=== PATIENT | female | born 1970 | race African-American/Black ===

== ENCOUNTER 2022-10-01 15:35 | Emergency (ER) | payer MEDICAID, OTHER ==
[~2022-10-01] VITALS: Ht 165.1 cm; Wt 84.5 kg
[2022-10-01 15:42] VITALS: BP 137/76; PULSE 77; RESP 18; O2SAT 99
[2022-10-01] MEDS ORDERED: ACETAMINOPHEN 325MG TABLET PO ONE (19:00)
[2022-10-01 19:25] VITALS: TEMP 98.1
[2022-10-01] MEDS ORDERED: TOPUD MT (19:56)
== END 2022-10-01 20:11 | disposition home or self-care (01) ==
LOC: ER 15:56
DX: R51.9 Headache, unspecified (principal); Z98.890 Other specified postprocedural states
CPT/HCPCS: 99284